=== PATIENT | male | born 1975 ===

== ENCOUNTER 2020-03-24 08:00 | Outpatient (CLI) | payer OTHER | END 2020-03-24 15:00 | disposition home or self-care (01) | LOC: PPH VACUNA 08:00 | DX: Z23 Encounter for immunization (principal) ==

== ENCOUNTER 2021-06-23 12:16 | Outpatient (CLI) | payer OTHER | END 2021-06-23 12:17 | disposition home or self-care (01) | LOC: LAB 12:16 | PROVIDERS: ATTEND Obstetrics & Gynecology | DX: Z03.818 Encounter for observation for suspected exposure to other biological agents ruled out (principal); J06.9 Acute upper respiratory infection, unspecified ==

== ENCOUNTER → 2021-08-02 10:00 | Outpatient (CLI) | payer OTHER | END | disposition home or self-care (01) | LOC: PPH VACUNA 10:00 | PROVIDERS: ATTEND Emergency Medicine Pediatric Emergency Medicine | DX: Z23 Encounter for immunization (principal) ==

== ENCOUNTER → 2021-12-15 | Outpatient (CLI) | payer OTHER | END | disposition home or self-care (01) | LOC: SONOGRAMA 09:05 | PROVIDERS: ATTEND Obstetrics & Gynecology | DX: D21.11 Benign neoplasm of connective and other soft tissue of right upper limb, including shoulder (principal) ==

== ENCOUNTER 2023-07-12 08:55 | Outpatient (CLI) | payer OTHER | END 2023-07-12 09:04 | disposition home or self-care (01) | LOC: RAD 08:55 | DX: J06.9 Acute upper respiratory infection, unspecified (principal); Z03.818 Encounter for observation for suspected exposure to other biological agents ruled out ==